=== PATIENT | male | born 1930 | race Caucasian/White ===

== ENCOUNTER 2016-09-14 19:56 | Inpatient (IN) | payer MEDICARE, MEDICAID ==
[~2016-09-14] VITALS: Ht 170.2 cm; Wt 68.5 kg
[2016-09-14] MEDS ORDERED: MAGNESIUM HYDROXIDE 30 ML UDC PO PRN (21:00)
[2016-09-14] MEDS ORDERED: MAG HYDROX/AL HYDROX/SIMETH 30 ML UDC PO PRN (21:00)
[2016-09-14] MEDS ORDERED: ACETAMINOPHEN 325 MG TABLET PO PRN (21:00)
[2016-09-14] MEDS ORDERED: OMEG1CAP55 PO (21:41)
[2016-09-14] MEDS ORDERED: OLME40TA3 PO (21:41)
[2016-09-14] MEDS ORDERED: MEMA10TA PO (21:41)
[2016-09-14] MEDS ORDERED: DUTA0.5C2 PO (21:41)
[2016-09-14] MEDS ORDERED: DONE5TAB3 PO (21:41)
[2016-09-14] MEDS ORDERED: ESCI10TA PO (21:41)
[2016-09-14] MEDS ORDERED: ALFU10TA10 PO (21:41)
[2016-09-14] MEDS ORDERED: METO25TA6 PO (21:41)
[2016-09-14] MEDS ORDERED: VIT1TABL66 PO (21:41)
[2016-09-14] MEDS ORDERED: ASPI81TA2 PO (21:41)
[2016-09-14] MEDS ORDERED: ATOR20TA PO (21:41)
[2016-09-14 22:54] VITALS: BP 121/89
[2016-09-14] MEDS ORDERED: LORAZEPAM 0.5 MG TABLET ONE (23:35)
[2016-09-14] MEDS ORDERED: TEMAZEPAM 7.5 MG CAPSULE ONE (23:35)
[2016-09-15 06:00] VITALS: BP 128/72
[2016-09-15 07:40] LABS: BASOPHILS % (AUTO) 0.2 % (0.0-2.0); DIFF TOTAL % 100 %; EOSINOPHILS % (AUTO) 0.3 % (0.0-6.0); HEMATOCRIT 42 % (39-51); HEMOGLOBIN 13.9 g/dL (13.5-17.5); LYMPHOCYTES # (AUTO) 0.7 /CMM (0.8-4.8); LYMPHOCYTES % (AUTO) 6.5 % (20.0-44.0); MEAN CORPUSCULAR HEMOGLOBIN 31 PG (26.0-33.0); MEAN CORPUSCULAR HGB CONC 33 g/dl (31.0-36.0); MEAN CORPUSCULAR VOLUME 94 fL (80-96); MONOCYTES # (AUTO) 1.3 /CMM (0.1-1.30); MONOCYTES % (AUTO) 11.6 % (2.0-12.0); NEUTROPHILS # (AUTO) 9.4 /CMM (1.8-8.9); NEUTROPHILS % (AUTO) 81.4 % (43.0-81.0); PLATELET COUNT (AUTO) 219 /CMM (150-450); RED BLOOD CELL COUNT(AUTO) 4.43 MIL/uL (4.5-6.0); WHITE BLOOD COUNT (AUTO) 11.5 K/uL (4.3-11.0)
[2016-09-15 07:54] LABS: ALBUMIN 3.7 g/dL (3.4-5.0); BILIRUBIN,TOTAL 2.6 mg/dL (0.2-1.0); CALCIUM, SERUM 9.1 mg/dL (8.5-10.1); POTASSIUM 3.6 mmol/L (3.5-5.1); TOTAL PROTEIN, SERUM 7.2 g/dL (6.4-8.2)
[2016-09-15] MEDS: Medication Not On Formulary EA (Omega-3 Acid Ethyl Esters (Lovaza) 1 GM) PO SCH ×2 (09:00→17:00)
[2016-09-15] MEDS ORDERED: ESCITALOPRAM OXALATE (10 MG) 10 MG TABLET PO SCH (09:00)
[2016-09-15] MEDS: Medication Not On Formulary EA (Olmesartan Medoxomil (Benicar) 40 MG) PO SCH (09:00)
[2016-09-15] MEDS: Medication Not On Formulary EA (Alfuzosin Hcl 10 MG) PO SCH (09:00)
[2016-09-15] MEDS ORDERED: NAMENDA 28 MG PO SCH (09:00)
[2016-09-15] MEDS: LORAZEPAM 0.5 MG TABLET PO PRN ×2 (10:09→17:17)
[2016-09-15] MEDS: DONEPEZIL 5 MG TABLET PO SCH (13:36)
[2016-09-15] MEDS: DUTASTERIDE (0.5 MG) 0.5 MG CAPSULE PO SCH (13:36)
[2016-09-15 16:00] VITALS: BP 120/68
[2016-09-15] MEDS: METOPROLOL TARTRATE 25 MG TABLET PO SCH (17:17)
[2016-09-15 20:00] VITALS: BP 125/87
[2016-09-15] MEDS: GABAPENTIN 100 MG CAPSULE PO SCH (20:14)
[2016-09-15] MEDS ORDERED: DIVALPROEX SODIUM 125 MG CAP.SPRINK PO SCH (21:00)
[2016-09-15] MEDS: ATORVASTATIN 10 MG TABLET PO SCH (21:17)
[2016-09-15] MEDS: TEMAZEPAM 7.5 MG CAPSULE PO PRN (22:31)
[2016-09-16 07:24] LABS: BASOPHILS % (AUTO) 0.4 % (0.0-2.0); DIFF TOTAL % 100 %; EOSINOPHILS # (AUTO) 0.2 /CMM (0.0-0.7); EOSINOPHILS % (AUTO) 3.5 % (0.0-6.0); HEMATOCRIT 40 % (39-51); HEMOGLOBIN 13.2 g/dL (13.5-17.5); LYMPHOCYTES # (AUTO) 1.3 /CMM (0.8-4.8); LYMPHOCYTES % (AUTO) 19.2 % (20.0-44.0); MEAN CORPUSCULAR HEMOGLOBIN 31 PG (26.0-33.0); MEAN CORPUSCULAR HGB CONC 33 g/dl (31.0-36.0); MEAN CORPUSCULAR VOLUME 94 fL (80-96); MONOCYTES % (AUTO) 13.9 % (2.0-12.0); NEUTROPHILS # (AUTO) 4.4 /CMM (1.8-8.9); PLATELET COUNT (AUTO) 194 /CMM (150-450); RED BLOOD CELL COUNT(AUTO) 4.24 MIL/uL (4.5-6.0)
[2016-09-16 07:46] LABS: ALBUMIN 3.2 g/dL (3.4-5.0); BILIRUBIN,TOTAL 2.9 mg/dL (0.2-1.0); CALCIUM, SERUM 8.9 mg/dL (8.5-10.1); POTASSIUM 3.5 mmol/L (3.5-5.1); TOTAL PROTEIN, SERUM 6.5 g/dL (6.4-8.2)
[2016-09-16 08:00] VITALS: BP 127/75
[2016-09-16] MEDS: DUTASTERIDE (0.5 MG) 0.5 MG CAPSULE PO SCH (08:43)
[2016-09-16] MEDS: DONEPEZIL 5 MG TABLET PO SCH (08:43)
[2016-09-16] MEDS: ESCITALOPRAM OXALATE (10 MG) 10 MG TABLET PO SCH (08:43)
[2016-09-16] MEDS: ASPIRIN 81 MG TAB.CHEW PO SCH (08:43)
[2016-09-16] MEDS: GABAPENTIN 100 MG CAPSULE PO SCH ×2 (08:43→17:00)
[2016-09-16] MEDS: METOPROLOL TARTRATE 25 MG TABLET PO SCH ×2 (08:44→17:00)
[2016-09-16] MEDS: Medication Not On Formulary EA (Omega-3 Acid Ethyl Esters (Lovaza) 1 GM) PO SCH ×2 (09:00→17:00)
[2016-09-16] MEDS: Medication Not On Formulary EA (Olmesartan Medoxomil (Benicar) 40 MG) PO SCH (09:00)
[2016-09-16] MEDS: Medication Not On Formulary EA (Alfuzosin Hcl 10 MG) PO SCH (09:00)
[2016-09-16] MEDS: LORAZEPAM 0.5 MG TABLET PO PRN ×2 (09:15→20:17)
[2016-09-16] MEDS ORDERED: OLANZAPINE 10 MG VIAL IM ONE (16:00)
[2016-09-16 16:07] VITALS: BP 114/77
[2016-09-16] MEDS: QUETIAPINE FUMARATE 25 MG TABLET PO SCH (17:00)
[2016-09-16] MEDS: TEMAZEPAM 7.5 MG CAPSULE PO PRN (20:55)
[2016-09-16] MEDS: ATORVASTATIN 10 MG TABLET PO SCH (21:03)
[2016-09-17 07:58] VITALS: BP 109/65
[2016-09-17] MEDS: DONEPEZIL 5 MG TABLET PO SCH (08:37)
[2016-09-17] MEDS: METOPROLOL TARTRATE 25 MG TABLET PO SCH ×2 (08:37→16:39)
[2016-09-17] MEDS: ESCITALOPRAM OXALATE (10 MG) 10 MG TABLET PO SCH (08:37)
[2016-09-17] MEDS: DUTASTERIDE (0.5 MG) 0.5 MG CAPSULE PO SCH (08:37)
[2016-09-17] MEDS: GABAPENTIN 100 MG CAPSULE PO SCH ×2 (08:37→16:40)
[2016-09-17] MEDS: QUETIAPINE FUMARATE 25 MG TABLET PO SCH ×4 (08:37→22:00)
[2016-09-17] MEDS: ASPIRIN 81 MG TAB.CHEW PO SCH (08:38)
[2016-09-17] MEDS: Medication Not On Formulary EA (Alfuzosin Hcl 10 MG) PO SCH (09:00)
[2016-09-17] MEDS: Medication Not On Formulary EA (Omega-3 Acid Ethyl Esters (Lovaza) 1 GM) PO SCH (09:00)
[2016-09-17] MEDS: Medication Not On Formulary EA (Olmesartan Medoxomil (Benicar) 40 MG) PO SCH (09:00)
[2016-09-17 15:48] VITALS: BP 141/66
[2016-09-17] MEDS: MEMANTINE HCL 5 MG TABLET PO SCH (16:40)
[2016-09-17 19:49] VITALS: BP 114/71
[2016-09-17] MEDS: ATORVASTATIN 10 MG TABLET PO SCH (22:17)
[2016-09-17] MEDS: TEMAZEPAM 7.5 MG CAPSULE PO PRN (22:19)
[2016-09-18] MEDS: LORAZEPAM 0.5 MG TABLET PO PRN (01:25)
[2016-09-18 08:07] VITALS: BP 134/74
[2016-09-18] MEDS: QUETIAPINE FUMARATE 25 MG TABLET PO SCH ×3 (08:50→21:29)
[2016-09-18] MEDS: DUTASTERIDE (0.5 MG) 0.5 MG CAPSULE PO SCH (08:50)
[2016-09-18] MEDS: DONEPEZIL 5 MG TABLET PO SCH (08:50)
[2016-09-18] MEDS: GABAPENTIN 100 MG CAPSULE PO SCH (08:51)
[2016-09-18] MEDS: ASPIRIN 81 MG TAB.CHEW PO SCH (08:51)
[2016-09-18] MEDS: MEMANTINE HCL 5 MG TABLET PO SCH ×2 (08:51→16:41)
[2016-09-18] MEDS: METOPROLOL TARTRATE 25 MG TABLET PO SCH ×2 (08:52→16:43)
[2016-09-18 16:00] VITALS: BP 103/67
[2016-09-18] MEDS: GABAPENTIN 300 MG CAPSULE PO SCH (16:41)
[2016-09-18 20:00] VITALS: BP 109/63
[2016-09-18] MEDS: TEMAZEPAM 7.5 MG CAPSULE PO PRN (21:29)
[2016-09-18] MEDS: ATORVASTATIN 10 MG TABLET PO SCH (21:29)
[2016-09-19 08:30] VITALS: BP 118/75
[2016-09-19] MEDS: DUTASTERIDE (0.5 MG) 0.5 MG CAPSULE PO SCH (09:18)
[2016-09-19] MEDS: GABAPENTIN 300 MG CAPSULE PO SCH ×4 (09:18→18:33)
[2016-09-19] MEDS: MEMANTINE HCL 5 MG TABLET PO SCH ×3 (09:19→18:32)
[2016-09-19] MEDS: METOPROLOL TARTRATE 25 MG TABLET PO SCH ×3 (09:19→18:32)
[2016-09-19] MEDS: ASPIRIN 81 MG TAB.CHEW PO SCH (09:19)
[2016-09-19] MEDS: QUETIAPINE FUMARATE 25 MG TABLET PO SCH ×5 (09:20→21:38)
[2016-09-19] MEDS: DONEPEZIL 5 MG TABLET PO SCH (09:20)
[2016-09-19 16:16] VITALS: BP 132/74
[2016-09-19] MEDS: SERTRALINE HCL 25 MG TABLET PO SCH ×2 (17:08→18:36)
[2016-09-19] MEDS: LORAZEPAM 0.5 MG TABLET PO PRN (18:31)
[2016-09-19 20:01] VITALS: BP 112/66
[2016-09-19] MEDS: ATORVASTATIN 10 MG TABLET PO SCH (21:38)
[2016-09-19] MEDS: TEMAZEPAM 7.5 MG CAPSULE PO PRN (21:39)
[2016-09-20 07:22] LABS: BASOPHILS % (AUTO) 0.3 % (0.0-2.0); DIFF TOTAL % 100 %; EOSINOPHILS # (AUTO) 0.3 /CMM (0.0-0.7); EOSINOPHILS % (AUTO) 5.2 % (0.0-6.0); HEMATOCRIT 38 % (39-51); HEMOGLOBIN 12.5 g/dL (13.5-17.5); LYMPHOCYTES # (AUTO) 1.2 /CMM (0.8-4.8); MEAN CORPUSCULAR HEMOGLOBIN 32 PG (26.0-33.0); MEAN CORPUSCULAR HGB CONC 33 g/dl (31.0-36.0); MEAN CORPUSCULAR VOLUME 95 fL (80-96); MONOCYTES # (AUTO) 0.9 /CMM (0.1-1.30); MONOCYTES % (AUTO) 14.2 % (2.0-12.0); NEUTROPHILS # (AUTO) 3.7 /CMM (1.8-8.9); NEUTROPHILS % (AUTO) 61.3 % (43.0-81.0); PLATELET COUNT (AUTO) 180 /CMM (150-450); RED BLOOD CELL COUNT(AUTO) 3.97 MIL/uL (4.5-6.0); WHITE BLOOD COUNT (AUTO) 6.1 K/uL (4.3-11.0)
[2016-09-20 07:48] LABS: ALBUMIN 2.8 g/dL (3.4-5.0); BILIRUBIN,TOTAL 1.5 mg/dL (0.2-1.0); CALCIUM, SERUM 8.7 mg/dL (8.5-10.1); CREATININE 0.9 mg/dL (0.6-1.3); POTASSIUM 3.7 mmol/L (3.5-5.1)
[2016-09-20 08:00] VITALS: BP 141/63
[2016-09-20] MEDS: DUTASTERIDE (0.5 MG) 0.5 MG CAPSULE PO SCH (08:29)
[2016-09-20] MEDS: ASPIRIN 81 MG TAB.CHEW PO SCH (08:29)
[2016-09-20] MEDS: SERTRALINE HCL 25 MG TABLET PO SCH (08:29)
[2016-09-20] MEDS: MEMANTINE HCL 5 MG TABLET PO SCH ×2 (08:30→17:51)
[2016-09-20] MEDS: DONEPEZIL 5 MG TABLET PO SCH (08:30)
[2016-09-20] MEDS: METOPROLOL TARTRATE 25 MG TABLET PO SCH ×2 (08:33→17:50)
[2016-09-20] MEDS: QUETIAPINE FUMARATE 25 MG TABLET PO SCH ×4 (08:33→21:30)
[2016-09-20] MEDS: GABAPENTIN 300 MG CAPSULE PO SCH ×2 (08:33→12:53)
[2016-09-20] MEDS: LORAZEPAM 0.5 MG TABLET PO PRN (12:53)
[2016-09-20 16:00] VITALS: BP 128/82
[2016-09-20] MEDS: GABAPENTIN 400 MG CAPSULE PO SCH (17:51)
[2016-09-20 20:00] VITALS: BP 96/52
[2016-09-20] MEDS: TEMAZEPAM 7.5 MG CAPSULE PO PRN (21:30)
[2016-09-20] MEDS: ATORVASTATIN 10 MG TABLET PO SCH (21:30)
[2016-09-21] MEDS: DUTASTERIDE (0.5 MG) 0.5 MG CAPSULE PO SCH (08:14)
[2016-09-21] MEDS: DONEPEZIL 5 MG TABLET PO SCH (08:14)
[2016-09-21] MEDS: GABAPENTIN 400 MG CAPSULE PO SCH ×3 (08:14→16:32)
[2016-09-21 08:15] VITALS: BP 119/72
[2016-09-21] MEDS: QUETIAPINE FUMARATE 25 MG TABLET PO SCH ×4 (08:15→22:53)
[2016-09-21] MEDS: MEMANTINE HCL 5 MG TABLET PO SCH ×2 (08:15→16:31)
[2016-09-21] MEDS: ASPIRIN 81 MG TAB.CHEW PO SCH (08:15)
[2016-09-21] MEDS: SERTRALINE HCL 25 MG TABLET PO SCH (08:15)
[2016-09-21] MEDS: METOPROLOL TARTRATE 25 MG TABLET PO SCH ×2 (08:15→16:31)
[2016-09-21 16:00] VITALS: BP 105/56
[2016-09-21 20:00] VITALS: BP 124/70
[2016-09-21] MEDS: ATORVASTATIN 10 MG TABLET PO SCH (22:52)
[2016-09-21] MEDS: TEMAZEPAM 7.5 MG CAPSULE PO PRN (22:53)
[2016-09-22 08:00] VITALS: BP 118/71
[2016-09-22] MEDS: QUETIAPINE FUMARATE 25 MG TABLET PO SCH ×2 (08:08→12:13)
[2016-09-22 08:09] VITALS: BP 118/71
[2016-09-22] MEDS: DONEPEZIL 5 MG TABLET PO SCH (08:09)
[2016-09-22] MEDS: MEMANTINE HCL 5 MG TABLET PO SCH (08:09)
[2016-09-22] MEDS: DUTASTERIDE (0.5 MG) 0.5 MG CAPSULE PO SCH (08:09)
[2016-09-22] MEDS: METOPROLOL TARTRATE 25 MG TABLET PO SCH (08:09)
[2016-09-22] MEDS: GABAPENTIN 400 MG CAPSULE PO SCH ×2 (08:09→12:13)
[2016-09-22] MEDS: SERTRALINE HCL 25 MG TABLET PO SCH (08:09)
[2016-09-22] MEDS: ASPIRIN 81 MG TAB.CHEW PO SCH (08:09)
== END 2016-09-22 13:15 | DRG 885 ==
LOC: GPS 19:59
PROVIDERS: ADMIT Psychiatry & Neurology Psychosomatic Medicine; ATTEND Contractor
DX: F29 Unspecified psychosis not due to a substance or known physiological condition (principal); E43 Unspecified severe protein-calorie malnutrition; G30.9 Alzheimer's disease, unspecified; F02.80 Dementia in other diseases classified elsewhere, unspecified severity, without behavioral disturbance, psychotic disturbance, mood disturbance, and anxiety; F41.9 Anxiety disorder, unspecified; N40.0 Benign prostatic hyperplasia without lower urinary tract symptoms; E78.5 Hyperlipidemia, unspecified; I10 Essential (primary) hypertension; E88.09 Other disorders of plasma-protein metabolism, not elsewhere classified; D72.829 Elevated white blood cell count, unspecified; Z68.23 Body mass index [BMI] 23.0-23.9, adult; F43.10 Post-traumatic stress disorder, unspecified
CPT/HCPCS: 36415; 80053-TC; 84443-TC; 85025-TC; 87081-TC; 97001-TC; 97116-TC; 97530-TC; J3490

== ENCOUNTER 2017-02-02 13:41 | Emergency (ER) | payer MEDICARE, MEDICAID ==
[~2017-02-02] VITALS: Ht 172.7 cm; Wt 83.9 kg
[~2017-02-02 13:41] MED LIST: ALFU10TA10 PO; ASPI81TA2 PO; ATOR20TA PO; DONE5TAB3 PO; DUTA0.5C2 PO; ESCI10TA PO; MEMA10TA PO; METO25TA6 PO; OLME40TA3 PO; OMEG1CAP55 PO; VIT1TABL66 PO
--- NOTE | 2017-02-02 14:29 | NUR ---
BIB AMBULANCE TO ER BED 10 FOR GEN WEAKNESS. DOES NOT SPEAK ROMANSH. VITALS TAKEN, CHANGE TO HOSPIAL GOWN. WAITING FOR MD BENAVIDES
--- NOTE | 2017-02-02 14:30 | NUR ---
IV STARTED ON THE LEFT AC 18. BLOOD SPECIMEN SENT TO LAB
[2017-02-02 14:59] LABS: BASOPHILS # (AUTO) 0.1 /CMM (0.0-0.2); BASOPHILS % (AUTO) 1.1 % (0.0-2.0); EOSINOPHILS # (AUTO) 0.4 /CMM (0.0-0.7); EOSINOPHILS % (AUTO) 6.2 % (0.0-6.0); HEMATOCRIT 40 % (39-51); HEMOGLOBIN 13.3 g/dL (13.5-17.5); LYMPHOCYTES # (AUTO) 1.2 /CMM (0.8-4.8); LYMPHOCYTES % (AUTO) 19.3 % (20.0-44.0); MEAN CORPUSCULAR HEMOGLOBIN 31 PG (26.0-33.0); MEAN CORPUSCULAR HGB CONC 33 g/dl (31.0-36.0); MEAN CORPUSCULAR VOLUME 93 fL (80-96); MONOCYTES # (AUTO) 1.1 /CMM (0.1-1.30); MONOCYTES % (AUTO) 16.5 % (2.0-12.0); NEUTROPHILS # (AUTO) 3.6 /CMM (1.8-8.9); NEUTROPHILS % (AUTO) 56.9 % (43.0-81.0); PLATELET COUNT (AUTO) 214 /CMM (150-450); RDW COEFFICIENT OF VARIATION 12.8 (11.5-15.0); RED BLOOD CELL COUNT(AUTO) 4.31 MIL/uL (4.5-6.0); WHITE BLOOD COUNT (AUTO) 6.4 K/uL (4.3-11.0)
--- NOTE | 2017-02-02 15:00 | NUR ---
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 AT BEDSIDE FOR EVAL.
[2017-02-02 15:09] LABS: CALCIUM, SERUM 8.8 mg/dL (8.5-10.1); CARBON DIOXIDE 34 mmol/L (21-32); CHLORIDE 103 mmol/L (98-107); CREATININE 0.9 mg/dL (0.6-1.3); GLUCOSE 95 mg/dL (74-106); POTASSIUM 4.4 mmol/L (3.5-5.1); SODIUM SERUM 137 mmol/L (136-145); UREA NITROGEN, BLOOD 11 mg/dL (7-18)
--- NOTE | 2017-02-02 15:09 | NUR ---
TAKEN BY [facility] FOR CT HEAD
[2017-02-02] MEDS: IV NS 0.9% 1,000 ML BAG IV ONE (15:10)
[2017-02-02 15:14] LABS: INR 1.12 (0.87-1.13); PROTHROMBIN TIME 11.8 SECS (9.5-12.7)
[2017-02-02 15:17] LABS: TROPONIN I < 0.017 ng/mL (0.00-0.056)
--- NOTE | 2017-02-02 15:19 | NUR ---
URINE SAMPLE SENT TO LAB
[2017-02-02 15:21] LABS: ALANINE AMINOTRANSFERASE 19 U/L (12-78); ALBUMIN 3.2 g/dL (3.4-5.0); ALKALINE PHOSPHATASE 76 U/L (46-116); ASPARTATE AMINOTRANSFERASE 18 U/L (15-37); BILIRUBIN,DIRECT 0.2 mg/dL (0.0-0.2); TOTAL PROTEIN, SERUM 6.7 g/dL (6.4-8.2)
[2017-02-02 15:35] LABS: APPEARANCE,URINE Clear (CLEAR); BILIRUBIN,URINE Negative (NEGATIVE); BLOOD, URINE Trace-intact Ery/uL (NEGATIVE); COLOR,URINE Yellow (YELLOW); KETONES,URINE Negative (NEGATIVE); LEUKOCYTE ESTERASE ,URINE Negative (NEGATIVE); NITRITE, URINE Negative (NEGATIVE); PROTEIN,URINE Negative (NEGATIVE); UGLUCOSE Negative (NEGATIVE); UROBILINOGEN,URINE 0.2 EU/dL (0.2)
[2017-02-02 15:57] LABS: BACTERIA,URINE Rare /HPF (None Seen); RBC,URINE 0-2 /HPF (0-2); SQUAMOUS EPITHELIAL CELL,UR Few /HPF (None Seen); WBC,URINE 0-2 /HPF (0-3)
--- NOTE | 2017-02-02 16:58 | NUR ---
CALLED [facility] FOR TRANSPORT ETA OF 1HR WAS GIVEN.
--- NOTE | 2017-02-02 18:27 | NUR ---
WITH AT BEDSIDE. WAITING FOR AMBULANCE TO TAKE HIM BACK TO [facility]. HL REMOVED REQUESTED
--- NOTE | 2017-02-02 18:43 | NUR ---
PICKED UP BY AMBULANCE, STABLE. NO DISTRESS. DISCHARGE INSTRUCTIONS INCLUDING PRESCRIPTION DISCUSSED TO SINCE PATIENT DOES NOT UNDERSTAND [place]UTCH. ABLE TO VERBALIZED UNDERSTANDING
[2017-02-02 18:45] VITALS: BP 134/68
== END 2017-02-02 16:41 | disposition home or self-care (01) ==
LOC: ER 13:43
DX: R53.1 Weakness (principal); J32.9 Chronic sinusitis, unspecified; E78.5 Hyperlipidemia, unspecified; F02.80 Dementia in other diseases classified elsewhere, unspecified severity, without behavioral disturbance, psychotic disturbance, mood disturbance, and anxiety; G20 Parkinson's disease; G30.9 Alzheimer's disease, unspecified; I10 Essential (primary) hypertension; K21.9 Gastro-esophageal reflux disease without esophagitis; Z79.82 Long term (current) use of aspirin
CPT/HCPCS: 36415; 70450-TC; 71010-TC; 80048-TC; 80076-TC; 81000-TC; 83605-TC; 84484-TC; 85025-TC; 85730-TC; 87040-TC; 87086-TC; A4606; Z7610

== ENCOUNTER 2017-05-23 09:34 | Emergency (ER) | payer MEDICARE, MEDICAID ==
[~2017-05-23] VITALS: Ht 172.7 cm; Wt 78.9 kg
--- NOTE | 2017-05-23 09:39 | NUR ---
[id number] FROM [facility] DT SOB. PATIENT IS AAO3, CITIZEN OF [place]. APPEARS IN NO APPARENT DISTRESS. SATING 94% ON ROOM AIR, SKIN IS WARM TO TOUCH AND NON DIAPHORETIC. AFEBRILE. VSS
[2017-05-23 10:05] LABS: BASOPHILS # (AUTO) 0.1 /CMM (0.0-0.2); BASOPHILS % (AUTO) 1.2 % (0.0-2.0); EOSINOPHILS # (AUTO) 0.3 /CMM (0.0-0.7); EOSINOPHILS % (AUTO) 4.9 % (0.0-6.0); HEMATOCRIT 42 % (39-51); HEMOGLOBIN 13.9 g/dL (13.5-17.5); LYMPHOCYTES # (AUTO) 1.1 /CMM (0.8-4.8); LYMPHOCYTES % (AUTO) 17.9 % (20.0-44.0); MEAN CORPUSCULAR HEMOGLOBIN 31 PG (26.0-33.0); MEAN CORPUSCULAR HGB CONC 33 g/dl (31.0-36.0); MEAN CORPUSCULAR VOLUME 93 fL (80-96); MONOCYTES # (AUTO) 0.7 /CMM (0.1-1.30); MONOCYTES % (AUTO) 10.4 % (2.0-12.0); NEUTROPHILS # (AUTO) 4.2 /CMM (1.8-8.9); NEUTROPHILS % (AUTO) 65.6 % (43.0-81.0); PLATELET COUNT (AUTO) 217 /CMM (150-450); RDW COEFFICIENT OF VARIATION 12.8 (11.5-15.0); RED BLOOD CELL COUNT(AUTO) 4.45 MIL/uL (4.5-6.0); WHITE BLOOD COUNT (AUTO) 6.4 K/uL (4.3-11.0)
[2017-05-23 10:12] LABS: CALCIUM, SERUM 8.8 mg/dL (8.5-10.1); CARBON DIOXIDE 31 mmol/L (21-32); CHLORIDE 104 mmol/L (98-107); GLUCOSE 109 mg/dL (74-106); POTASSIUM 3.9 mmol/L (3.5-5.1); SODIUM SERUM 140 mmol/L (136-145); UREA NITROGEN, BLOOD 12 mg/dL (7-18)
[2017-05-23 10:15] LABS: INR 1.03 (0.87-1.13); PROTHROMBIN TIME 10.7 SECS (9.5-12.7)
[2017-05-23 10:20] LABS: TROPONIN I < 0.017 ng/mL (0.00-0.056)
[2017-05-23 10:25] LABS: ALANINE AMINOTRANSFERASE 21 U/L (12-78); ALBUMIN 3.2 g/dL (3.4-5.0); ALKALINE PHOSPHATASE 83 U/L (46-116); ASPARTATE AMINOTRANSFERASE 19 U/L (15-37); B-TYPE NATRIURETIC PEPTIDE 280 PG/ML (0-125); BILIRUBIN,DIRECT 0.3 mg/dL (0.0-0.2); BILIRUBIN,TOTAL 1.5 mg/dL (0.2-1.0)
[2017-05-23] MEDS ORDERED: CRAN425C PO (12:00)
--- NOTE | 2017-05-23 12:10 | NUR ---
Patient does not wish to proceed with medical care recommended by Dr. CARPIO. Patient given information related to possible complications, up to and including , which could occur as a result of leaving the hospital at this time. Patient verbalizes understanding of risks involved due to leaving against medical advice. Patient has signed AMA form.
[2017-05-23] MEDS ORDERED: ACET325T53 PO (12:14)
[2017-05-23] MEDS ORDERED: GABA-536 PO (12:14)
[2017-05-23] MEDS ORDERED: SERT50TA PO (12:14)
[2017-05-23] MEDS ORDERED: ATOR10TA PO (12:14)
[2017-05-23] MEDS ORDERED: CHOL400T PO (12:14)
[2017-05-23] MEDS ORDERED: ONDA4TAB5 PO (12:14)
[2017-05-23] MEDS ORDERED: MELA3TAB PO (12:14)
[2017-05-23] MEDS ORDERED: TRAM50TA92 PO (12:14)
--- NOTE | 2017-05-23 12:14 | NUR ---
called for amb pickup eta: 30 mins [id number] trip number
--- NOTE | 2017-05-23 12:51 | NUR ---
IV removed. Catheter intact and site benign. Pressure and 4x4 applied to site. No bleeding noted.
[2017-05-23 12:52] VITALS: BP 142/84
== END 2017-05-23 12:52 | disposition left against medical advice (07) ==
LOC: ER 09:36
DX: R06.02 Shortness of breath (principal); E78.5 Hyperlipidemia, unspecified; F02.80 Dementia in other diseases classified elsewhere, unspecified severity, without behavioral disturbance, psychotic disturbance, mood disturbance, and anxiety; G20 Parkinson's disease; G30.9 Alzheimer's disease, unspecified; I10 Essential (primary) hypertension; K21.9 Gastro-esophageal reflux disease without esophagitis; Z53.20 Procedure and treatment not carried out because of patient's decision for unspecified reasons
CPT/HCPCS: 36415; 71010; 80048; 80076; 83880; 84484; 85025; 85730; 93005; 99285; A4606; Z7610